=== PATIENT | female | born 2000 | race Caucasian/White ===

== ENCOUNTER 2020-02-22 07:21 | Outpatient (CLI) | payer OTHER ==
[~2020-02-22] VITALS: Ht 162.6 cm; Wt 66.7 kg
[2020-02-22 08:14] VITALS: BP 105/62; PULSE 78; TEMP 98.1
[2020-02-22] MEDS ORDERED: ZOLOFT 100MG100 MG PO (08:14)
[2020-02-22] MEDS ORDERED: PRENATAL TABLET PO (08:14)
[2020-02-22 09:35] VITALS: BP 111/66; PULSE 70
--- NOTE | 2020-02-22 10:01 | NUR ---
Discharge instructions given to pt.pt verbalizes understanding.INT removed,catheter tip intact.Pt escorted out by this nurse.
== END 2020-02-22 10:01 | disposition home or self-care (01) ==
LOC: COL.CAR 07:21
DX: R55 Syncope and collapse (principal)